=== PATIENT | female | born 1985 | race Two or more races ===

== ENCOUNTER 2022-07-29 00:02 | Emergency (ER) | payer OTHER ==
[~2022-07-29] VITALS: Ht 167.6 cm; Wt 124.3 kg
[2022-07-29] MEDS ORDERED: PROPRANOLOL HCL20 MG (00:16)
[2022-07-29] MEDS ORDERED: COZAAR25 MG (00:16)
[2022-07-29] MEDS ORDERED: LEVSIN/SL0.125 MG SL (03:16)
== END 2022-07-29 03:35 | disposition home or self-care (01) ==
LOC: ER 00:02
DX: R10.12 Left upper quadrant pain (principal)